=== PATIENT | male | born 1980 | race Caucasian/White ===

== ENCOUNTER 2019-08-09 08:30 | Outpatient (RCR) | payer OTHER, SELFPAY ==
--- NOTE | 2019-07-11 10:47 | PTOPEVAL ---
Thank you for referring this patient to [facility]. Please review, sign, date and return this plan of care SPENCER. Pt seen for initial evaluation today to address impairments related to his right lateral malleolus fracture. He requires additional skilled therapy to address noted impairments. Recommendations of continued PT 3x/wk x 4 wk to achieve therapy goals. I agree with and certify that the following plan of care is medically necessary. Referring Physician Date Attending Provider: Hiro Eden MD Referring Provider: *PT Outpatient Evaluation Start: 07/11/19 09:30 Freq: Status: Active Protocol: Document 07/11/19 09:30 [email or web address] (Rec: 07/11/19 10:28 CAP [email or web address]) Therapy Assessment Status Assessment Status Assessment Status Evaluation Outpatient Past Medical History Past Medical History Past Medical History Status Patient Denies Significant Past Medical History Evaluation Information Problem Diagnosis right laterla malleolus fracture Onset 05/23/19 Cause fall Subjective Information He sustained a fall on Text:As Reported By Patient/ when he was getting out of Family the shower with full weight bearing on left LE when the leg gave out. He was able to walk on the ankle initially, but the pain progressed with walking. He has been in a soft cast initially, then placed into a walking boot 1 wk after injury . He had been on crutches, but progressed off of them over the past month. When wearing the boot his able to wear most activitites. He has been weaning off the boot over the past week. He is walking around the house without the boot for prolonged period. He does not wear the boot to sleep. He has not tried any walking outside without the boot. His hobbies include work, sitting around the house, occasional bowling, and walking. 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
--- NOTE | 2019-08-09 10:21 | PTOPEVAL ---
Thank you for referring this patient to [facility]. Please review, sign, date and return this plan of care SPENCER. Pt has received 13 therapy visits since 07/11/19 to address impairments related to ankle fracture. He demonstrates progress with pain, ankle strength, LE strength and performance with functional mobility. He has reached maximal potential with skilled therapy at this time. DC skilled therapy with pt to RTW and cont with his HEP. I agree with and certify that the following plan of care is medically necessary. Referring Physician Date Attending Provider: Hiro Eden MD Referring Provider: *PT Outpatient Re-Evaluation/Discharge Start: 07/11/19 09:30 Freq: Status: Active Protocol: Document 08/09/19 08:42 CAP (Rec: 08/09/19 09:17 CAP [id number]) Outpatient Past Medical History Past Medical History Status Patient Denies Significant Past Medical History Evaluation Information Problem Diagnosis right lateral malleolus fracture Onset 05/23/19 Cause fall Additional Evaluation Detail He sustained a fall on when he was getting out of the shower with full weight bearing on left LE when the leg gave out. Subjective Information Pt had a f/u with his MD this Query Text:As Reported By Patient/ week who released him to RTW. Family He has been more active with helping a friend move requiring up/down steps, in/ out of a trunk and increased walking. Denies any problems with normal daily activities, community walking, steps or driving a car. Reports the ankle is still swollen and slightly tender Pain Assessment Timing of Pain Assessment Timing of Pain Assessment Pre-Treatment Pain Scale Pain Scale Used Numeric (1 - 10) Self Report Pain Assessment Right Lateral Ankle(s) Reported Pain Level 0 Current Pain Intensity 0 Pain Score Pain Score 0: Self Report Lower Extremity Range of Motion Ankle/Foot Range of Motion Right Ankle Dorsiflextion With Knee Extension 0 Range of Motion - Active Ankle Dorsiflextion With Knee Extension 3 Range of Motion - Passive Ankle Plantarflexion Range of Motion - 40 Active Query Text: Ankle Eversion Range of Motion - Active 10 Ankle Eversion Range of Motion - Passive 15 Ankle Inversion Range of Motion - Active 30 Lower Extremity Muscle Strength Testing Hip Strength
== END 2019-08-12 10:23 | disposition home or self-care (01) ==
LOC: ANHPT 08:30
PROVIDERS: PCP Emergency Medicine; Visit Provider Orthopaedic Surgery
DX: S82.61XD Displaced fracture of lateral malleolus of right fibula, subsequent encounter for closed fracture with routine healing (principal)
CPT/HCPCS: 97110; 97112; 97140; 97162; 97530